=== PATIENT | female | born 1985 | race American Indian/Alaskan Native ===

== ENCOUNTER 2016-06-01 16:43 | Emergency (ER) | payer SELFPAY ==
--- NOTE | 2016-06-04 15:34 | ED Elopement Review ---
ED Pt Elopement review - Call Back decision Pt Call Back Decision: No action required
== END 2016-06-01 17:30 | disposition left against medical advice (07) ==
LOC: ED 16:43
DX: O26.891 Other specified pregnancy related conditions, first trimester (principal); R10.9 Unspecified abdominal pain; Z3A.11 11 weeks gestation of pregnancy; Z53.21 Procedure and treatment not carried out due to patient leaving prior to being seen by health care provider

== ENCOUNTER 2016-11-12 21:29 | Outpatient (CLI) | payer MEDICAID ==
[2016-11-12 22:18] VITALS: BP 122/78
== END 2016-11-13 | disposition home or self-care (01) ==
LOC: TRG 21:29
PROVIDERS: ATTEND Obstetrics & Gynecology Gynecology
DX: O42.92 Full-term premature rupture of membranes, unspecified as to length of time between rupture and onset of labor (principal); O26.893 Other specified pregnancy related conditions, third trimester; R25.2 Cramp and spasm; Z3A.34 34 weeks gestation of pregnancy

== ENCOUNTER → 2017-05-21 20:41 | Emergency (ER) | payer MEDICAID | END | disposition left against medical advice (07) | LOC: ED 20:41 | DX: J11.1 Influenza due to unidentified influenza virus with other respiratory manifestations (principal); Z53.21 Procedure and treatment not carried out due to patient leaving prior to being seen by health care provider ==

== ENCOUNTER 2017-10-29 02:37 | Emergency (ER) | payer MEDICAID ==
[2017-10-29 02:42] VITALS: BP 150/82
[2017-10-29] MEDS ORDERED: PROVENTIL IH ONE ×2 (02:53→03:04)
--- NOTE | 2017-10-29 06:18 | XRay Report ---
FINAL REPORT PROCEDURE: XR CHEST ROUTINE 2V TECHNIQUE: PA and lateral chest radiographs were obtained. CPT 86111 HISTORY: cough COMPARISON: No prior studies are available for comparison. FINDINGS: Heart: Normal. Mediastinum/Vessels: Normal. Lungs/Pleural space: Normal. Bony thorax: No acute osseous abnormality. Other: IMPRESSION: Normal examination.
--- NOTE | 2017-10-29 07:04 | Emergency Department Report ---
- General Chief Complaint: Upper Respiratory Infection Stated Complaint: COUGH Time Seen by Provider: 10/29/17 06:59 Source: patient Mode of arrival: Ambulatory Limitations: No Limitations - Related Data Previous Rx's Medication Instructions Recorded Last Taken Type Ofloxacin [Ocuflox 0.3%] 1 - 2 drops OP Q4HR #1 bottle 05/14/15 Unknown Rx ALBUTEROL Inhaler (OR & NICU) 2 puff IH QID PRN #1 inhalation 10/29/17 Unknown Rx [Proair] Benzonatate [Tessalon Perle] 100 mg PO TID #15 capsule 10/29/17 Unknown Rx Prednisone [predniSONE 10 mg 10 mg PO .TAPER #1 tab.ds.pk 10/29/17 Unknown Rx (6-Day Pack, 21 Tabs)] Allergies Allergy/AdvReac Type Severity Reaction Status Date / Time No Known Allergies Allergy Verified 05/14/15 09:50 ED Review of Systems ROS: Stated complaint: COUGH Other details as noted in HPI ED Past Medical Hx - Past Medical History Hx Hypertension: No Hx Diabetes: No Hx Deep Vein Thrombosis: No Hx Renal Disease: No Hx Sickle Cell Disease: No Hx Seizures: Yes Hx Asthma: No Additional medical history: PCOS - Surgical History Past Surgical History?: No - Social History Smoking Status: Never Smoker Substance Use Type: None - Medications Home Medications: Home Medications Medication Instructions Recorded Confirmed Last Taken Type Ofloxacin [Ocuflox 0.3%] 1 - 2 drops OP Q4HR #1 bottle 05/14/15 Unknown Rx ALBUTEROL Inhaler (OR & NICU) 2 puff IH QID PRN #1 inhalation 10/29/17 Unknown Rx [Proair] Benzonatate [Tessalon Perle] 100 mg PO TID #15 capsule 10/29/17 Unknown Rx Prednisone [predniSONE 10 mg 10 mg PO .TAPER #1 tab.ds.pk 10/29/17 Unknown Rx (6-Day Pack, 21 Tabs)] ED Physical Exam - General Limitations: No Limitations ED Course Vital Signs 10/29/17 10/29/17 02:41 02:59 Temperature 98.1 F 98.1 F Pulse Rate 84 83 Respiratory 18 18 Rate Blood Pressure 150/82 150/82 O2 Sat by Pulse 95 96 Oximetry Critical care attestation.: If time is entered above; I have spent that time in minutes in the direct care of this critically ill patient, excluding procedure time. ED Disposition Disposition: [id number] TO HOME OR SELFCARE Is pt being admited?: No Does the pt Need Aspirin: No Condition: Stable Instructions: Antitussives (By mouth) Additional Instructions: He is taking prescribed medication as prescribed. If symptoms persist or gets worse please follow-up with her primary care provider. [address] [place] [address] Center. Prescriptions: ALBUTEROL Inhaler (OR & NICU) [Proair] 2 puff IH QID PRN #1 inhalation PRN Reason: Shortness Of Breath Benzonatate [Tessalon Perle] 100 mg PO TID #15 capsule Prednisone [predniSONE 10 mg (6-Day Pack, 21 Tabs)] 10 mg PO .TAPER #1 tab.ds.pk Referrals: PRIMARY CARE, [Primary Care Provider] - 3-5 Days Forms: Work/School Release Form(ED)
[2017-10-29 07:06] LABS: HCG Qualitative,Urine Negative (Negative)
== END 2017-10-29 07:19 | disposition home or self-care (01) ==
LOC: ED 02:37
DX: R05 Cough (principal); E28.2 Polycystic ovarian syndrome
CPT/HCPCS: 71046; 81025; 94640

== ENCOUNTER 2018-07-28 03:05 | Emergency (ER) | payer MEDICAID, OTHER ==
[2018-07-28 03:21] VITALS: BP 154/95
[2018-07-28 03:37] LABS: Bilirubin,Urine NEG (Negative); Blood,Urine NEG (Negative); Color,Urine Yellow (Yellow); Protein,Urine <15 mg/dL mg/dL (Negative); Urobilinogen,Urine < 2.0 mg/dL (<2.0)
[2018-07-28 03:38] LABS: Hematocrit 47.3 % (30.3-42.9); Hemoglobin 16.7 gm/dl (10.1-14.3); Mean Corpuscular HGB Conc 35 % (30-34); Mean Corpuscular Volume 78 fl (79-97); Platelet Count 217 K/mm3 (140-440); Red Cell Distribution Width 13.4 % (13.2-15.2)
[2018-07-28] MEDS ORDERED: ZOFRAN ODT PO ONE (03:42)
[2018-07-28] MEDS ORDERED: ZOFRAN ODT ONE (03:42)
[2018-07-28] MEDS ORDERED: TYLENOL PO ONE (03:53)
[2018-07-28] MEDS ORDERED: SOLU-Medrol IM ONE (03:54)
[2018-07-28 04:00] LABS: BUN/Creatinine Ratio 13; Blood Urea Nitrogen 10 mg/dL (7-17); Calcium 9.3 mg/dL (8.4-10.2); Hemolysis Index 5
--- NOTE | 2018-07-28 04:33 | Emergency Department Report ---
- General Chief Complaint: Nausea/Vomiting/Diarrhea Stated Complaint: FLU SYMPTOMS, VOMITING Time Seen by Provider: 07/28/18 03:55 Source: patient Mode of arrival: Ambulatory Limitations: No Limitations - History of Present Illness Initial Comments: Patient is a 33-year-old female with no past medical history who presents to the ED with complaint of acute onset persistent nasal and sinus congestion, frontal sinus pressure and headache, dry cough with severe diffuse body aches, nausea and vomiting for the last 2 days. Patient states that her family members also had similar symptoms in the last few days. Patient states that she has been taking [id number] remedies and in no relief. Patient denies dizziness, chest pain, shortness of breath, change in vision, abdominal pain, diarrhea, dysuria, urinary frequency and urgency, sore throat, fever or chills. MD Complaint: fever, cough, rhinorrhea, nasal congestion, sinus pain, other (diffuse body aches and pains) -: Sudden, days(s) (2) Severity: severe Severity scale (0 -10): 8 Quality: sharp, aching Consistency: constant Improves With: nothing Worsens With: nothing Context: sick contacts Associated Symptoms: fever, chills, myalgias, headache, rhinorrhea, nasal congestion, cough, shortness of breath, nausea, vomiting. denies: diaphoresis, sore throat, stiff neck, chest pain, abdominal pain, diarrhea, dysuria, confusion, weight loss, epistaxis, ear pain, other Treatments Prior to Arrival: none - Related Data Previous Rx's Medication Instructions Recorded Last Taken Type Ofloxacin [Ocuflox 0.3%] 1 - 2 drops OP Q4HR #1 bottle 05/14/15 Unknown Rx ALBUTEROL Inhaler (OR & NICU) 2 puff IH QID PRN #1 inhalation 10/29/17 Unknown Rx [Proair] Benzonatate [Tessalon Perle] 100 mg PO TID #15 capsule 10/29/17 Unknown Rx Prednisone [predniSONE 10 mg 10 mg PO .TAPER #1 tab.ds.pk 10/29/17 Unknown Rx (6-Day Pack, 21 Tabs)] Amoxicillin/Potassium Clav 1 each PO Q12H #20 tablet 07/28/18 Unknown Rx [Augmentin 875-125 Tablet] Benzonatate [Tessalon Perles] 100 mg PO Q8HR #30 capsule 07/28/18 Unknown Rx Ibuprofen [Motrin] 800 mg PO Q8HR PRN #20 tablet 07/28/18 Unknown Rx Ondansetron [Zofran Odt] 4 mg PO Q6HR PRN #15 tab.rapdis 07/28/18 Unknown Rx Prednisone [predniSONE 10 mg 10 mg PO .TAPER #21 tab.ds.pk 07/28/18 Unknown Rx (6-Day Pack, 21 Tabs)] Allergies Allergy/AdvReac Type Severity Reaction Status Date / Time No Known Allergies Allergy Verified 05/14/15 09:50 ED Review of Systems ROS: Stated complaint: FLU SYMPTOMS, VOMITING Other details as noted in HPI Comment: All other systems reviewed and negative Constitutional: no symptoms reported, chills, fever, malaise, weakness. denies: diaphoresis Eyes: denies: eye pain, eye discharge, vision change ENT: congestion. denies: ear pain, throat pain Respiratory: cough. denies: shortness of breath, SOB with exertion, SOB at rest, wheezing Cardiovascular: denies: chest pain, palpitations, dyspnea on exertion, edema, syncope, paroxysmal nocturnal dyspnea Endocrine: no symptoms reported Gastrointestinal: nausea, vomiting. denies: abdominal pain, diarrhea, constipation Genitourinary: denies: urgency, dysuria, discharge Musculoskeletal: arthralgia, myalgia. denies: back pain, joint swelling Skin: denies: rash, lesions Neurological: headache. denies: weakness, paresthesias Psychiatric: denies: anxiety, depression Hematological/Lymphatic: denies: easy bleeding, easy bruising ED Past Medical Hx - Past Medical History Previous Medical History?: Yes Hx Hypertension: No Hx Diabetes: No Hx Deep Vein Thrombosis: No Hx Renal Disease: No Hx Sickle Cell Disease: No Hx Seizures: Yes (no seizure since 7 yrs old) Hx Asthma: No Additional medical history: PCOS - Surgical History Past Surgical History?: No - Social History Smoking Status: Never Smoker - Medications Home Medications: Home Medications Medication Instructions Recorded Confirmed Last Taken Type Ofloxacin [Ocuflox 0.3%] 1 - 2 drops OP Q4HR #1 bottle 05/14/15 Unknown Rx ALBUTEROL Inhaler (OR & NICU) 2 puff IH QID PRN #1 inhalation 10/29/17 Unknown Rx [Proair] Benzonatate [Tessalon Perle] 100 mg PO TID #15 capsule 10/29/17 Unknown Rx Prednisone [predniSONE 10 mg 10 mg PO .TAPER #1 tab.ds.pk 10/29/17 Unknown Rx (6-Day Pack, 21 Tabs)] Amoxicillin/Potassium Clav 1 each PO Q12H #20 tablet 07/28/18 Unknown Rx [Augmentin 875-125 Tablet] Benzonatate [Tessalon Perles] 100 mg PO Q8HR #30 capsule 07/28/18 Unknown Rx Ibuprofen [Motrin] 800 mg PO Q8HR PRN #20 tablet 07/28/18 Unknown Rx Ondansetron [Zofran Odt] 4 mg PO Q6HR PRN #15 tab.rapdis 07/28/18 Unknown Rx Prednisone [predniSONE 10 mg 10 mg PO .TAPER #21 tab.ds.pk 07/28/18 Unknown Rx (6-Day Pack, 21 Tabs)] ED Physical Exam - General Limitations: No Limitations General appearance: alert, in no apparent distress - Head Head exam: Present: atraumatic, normocephalic, normal inspection - Eye Eye exam: Present: normal appearance, PERRL, EOMI - ENT ENT exam: Present: normal exam, normal orophraynx, mucous membranes moist, TM's normal bilaterally, normal external ear exam, other (grossly congested nasal passages) - Neck Neck exam: Present: normal inspection, full ROM. Absent: tenderness, meningismus, lymphadenopathy - Respiratory Respiratory exam: Present: normal lung sounds bilaterally. Absent: respiratory distress, rales, rhonchi, stridor, chest wall tenderness, accessory muscle use - Cardiovascular Cardiovascular Exam: Present: normal rhythm, tachycardia, normal heart sounds. Absent: systolic murmur, diastolic murmur, rubs, gallop - GI/Abdominal GI/Abdominal exam: Present: soft, normal bowel sounds. Absent: tenderness, rebound, hyperactive bowel sounds, hypoactive bowel sounds, organomegaly - Rectal Rectal exam: Present: deferred - Extremities Exam Extremities exam: Present: normal inspection, full ROM, normal capillary refill - Back Exam Back exam: Present: normal inspection, full ROM. Absent: tenderness, CVA tenderness (R), CVA tenderness (L), muscle spasm, paraspinal tenderness, vertebral tenderness - Neurological Exam Neurological exam: Present: alert, oriented X3, CN II-XII intact, normal gait, reflexes normal - Psychiatric Psychiatric exam: Present: normal affect, normal mood, anxious - Skin Skin exam: Present: warm, dry, intact, normal color. Absent: rash ED Course Vital Signs 07/28/18 03:17 Temperature 99.8 F H Pulse Rate 121 H Respiratory 22 Rate Blood Pressure 154/95 O2 Sat by Pulse 98 Oximetry - Reevaluation(s) Reevaluation #1: 07/28/18 04:36 Patient is alert and oriented 3 and does not in any distress but anxious, tachycardic and hypertensive. Patient was treated for pain and is given a steroid injection and eating. Labs were drawn and Chest x-ray ordered Reevaluation #2: 07/28/18 05:30 Patient is alert and oriented 3, in no distress. Lab test results were reviewed and are non-actionable. Chest x-ray shows no acute cardiopulmonary abnormalities. On reevaluation, patient felt better, the cough has improved with treatment. Patient was discharged home on medications and advised to follow-up with her primary care physician in 7-10 days for reevaluation or return to the ED immediately if symptoms get worse. ED Medical Decision Making - Lab Data Result diagrams: 07/28/18 03:25 07/28/18 03:25 - Radiology Data Radiology results: report reviewed, image reviewed Chest x-ray shows no acute cardiopulmonary abnormalities. - Medical Decision Making Patient is alert and oriented 3 and does not in any distress but anxious, tachycardic and hypertensive. Patient was treated for pain and is given a steroid injection and eating. Labs were drawn and Chest x-ray ordered. Lab test results were reviewed and are non-actionable. Chest x-ray shows no acute c ardiopulmonary abnormalities. Patient's symptoms are likely viral or atypical bacterial infection. On reevaluation, patient felt better, the cough has improved with treatment. Patient was discharged home on medications and advised to follow-up with her primary care physician in 7-10 days for reevaluation or return to the ED immediately if symptoms get worse. - Differential Diagnosis acute bronchitis; acute sinusitis; acute URI; Nausea and vomiting Critical care attestation.: If time is entered above; I have spent that time in minutes in the direct care of this critically ill patient, excluding procedure time. ED Disposition Clinical Impression: Acute upper respiratory infection, Flu-like symptoms, Nausea and vomiting in adult Acute bronchitis Qualifiers: Bronchitis organism: other organism Qualified Code(s): J20.8 - Acute bronchitis due to other specified organisms Acute sinusitis Qualifiers: Sinusitis location: unspecified location Recurrence: non-recurrent Qualified Code(s): J01.90 - Acute sinusitis, unspecified Disposition: TO HOME OR SELFCARE Is pt being admited?: No Does the pt Need Aspirin: No Condition: Stable Instructions: Upper Respiratory Infection (ED), Acute Bronchitis (ED), Acute Nausea and Vomiting (ED) Additional Instructions: Take medications with food, drink plenty of fluids and follow-up with your primary care physician in 7-10 days for reevaluation, or return to the ED immediately if symptoms get worse. Prescriptions: Amoxicillin/Potassium Clav [Augmentin 875-125 Tablet] 1 each PO Q12H #20 tablet Ibuprofen [Motrin] 800 mg PO Q8HR PRN #20 tablet PRN Reason: Pain , Severe (7-10) Prednisone [predniSONE 10 mg (6-Day Pack, 21 Tabs)] 10 mg PO .TAPER #21 tab.ds.pk Benzonatate [Tessalon Perles] 100 mg PO Q8HR #30 capsule Ondansetron [Zofran Odt] 4 mg PO Q6HR PRN #15 tab.rapdis PRN Reason: Nausea Referrals: PAMELA LERMA MD [Primary Care Provider] - 3-5 Days Forms: Work/School Release Form(ED) Time of Disposition: 05:37 Print Language: UKRAINIAN
[2018-07-28 04:38] LABS: Alanine Aminotransferase 16 units/L (7-56); Albumin 4.5 g/dL (3.9-5)
[2018-07-28] MEDS ORDERED: TORADOL IM ONE (04:38)
--- NOTE | 2018-07-28 04:38 | XRay Report ---
PROCEDURE: XR CHEST ROUTINE 2V TECHNIQUE: PA and lateral chest radiographs were obtained. HISTORY: cough, fever COMPARISONS: October 29, 2017. FINDINGS: Heart: Normal. Mediastinum/Vessels: Normal. Lungs/Pleural space: Normal. Bony thorax: No acute osseous abnormality. IMPRESSION: Normal examination. This document is electronically signed by Malu Duran DO., July 28 2018 04:36:36 AM ET
[2018-07-28 04:44] LABS: Bilirubin,Direct < 0.2 mg/dL (0-0.2)
== END 2018-07-28 06:27 | disposition home or self-care (01) ==
LOC: ED 03:05
DX: J06.9 Acute upper respiratory infection, unspecified (principal); J20.9 Acute bronchitis, unspecified; J01.90 Acute sinusitis, unspecified; Z79.899 Other long term (current) drug therapy
CPT/HCPCS: 36415; 71046; 80048; 80076; 81001; 84703; 85027; 96372; 99284; J1885; J2930; Q0162